=== PATIENT | male | born 1945 | race Caucasian/White ===

== ENCOUNTER 2022-03-29 11:55 | Emergency (ER) | payer MEDICARE, OTHER ==
[2022-03-29 13:38] LABS: BASOPHIL 0.2 % (0-2); EOSINOPHIL 0 % (0-7); HCT 31.9 % (42.0-52.0); HGB 10.1 g/dl (13.2-18.0); LYMPHOCYTE 6.5 % (15-48); MCHC 31.7 g/dL (32.0-36.0); MONOCYTE 14.3 % (0-12); MPV 8.7 fL (6.0-9.5); NEUTROPHIL 78.1 % (41-80); NRBC 0; PLT 255 K/uL (150-400); RBC 3.89 M/uL (4.70-6.00); RDW 16.2 % (11.5-14.0); WBC 12.6 K/uL (4.0-10.5)
[2022-03-29 13:49] LABS: INR 1.39 (0.9-1.2); PROTHROMBIN TIME 16.6 SECONDS (11.9-13.9); PTT 35.5 SECONDS (24.9-34.6)
[2022-03-29 13:56] LABS: ALBUMIN 2.5 g/dL (3.4-5.0); BILIRUBIN - TOTAL 0.8 mg/dL (0.2-1.0); BUN/CREAT RATIO (CALC) 17.2 RATIO; CREATININE 0.93 mg/dL (0.67-1.17); GLOBULIN (CALCULATION) 4.6 g/dL; POTASSIUM 4.2 mmol/L (3.5-5.1); TOTAL PROTEIN 7.1 g/dL (6.4-8.2)
[2022-03-29 13:58] LABS: LACTIC ACID 2.4 mmol/L (0.4-1.9)
[2022-03-29 15:44] LABS: BILIRUBIN NEGATIVE (NEGATIVE); BLOOD 1+ Ery/uL (NEGATIVE); CLARITY CLEAR (CLEAR); COLOR YELLOW (YELLOW); GLUCOSE (U) NORMAL (NORMAL); LEUKOCYTES NEGATIVE Leu/uL (NEGATIVE); NITRITE NEGATIVE (NEGATIVE); PROTEIN TRACE (LOW) mg/dL (NEGATIVE); SPECIFIC GRAVITY 1.015 (1.001-1.030)
[2022-03-29 15:53] LABS: BACTERIA 4+
== END 2022-03-29 19:34 | disposition other institution (70) ==
LOC: FER 11:55
PROVIDERS: Emergency Medicine
DX: R53.1 Weakness (principal); I21.4 Non-ST elevation (NSTEMI) myocardial infarction; C85.90 Non-Hodgkin lymphoma, unspecified, unspecified site; I69.928 Other speech and language deficits following unspecified cerebrovascular disease; I25.2 Old myocardial infarction; E11.9 Type 2 diabetes mellitus without complications; I10 Essential (primary) hypertension; Z95.5 Presence of coronary angioplasty implant and graft; Z95.1 Presence of aortocoronary bypass graft; Z87.891 Personal history of nicotine dependence
CPT/HCPCS: 36415; 70450; 71045; 71250; 72170; 80053; 81001; 83605; 84484; 85025; 85610; 85730; 93005; J7040

== ENCOUNTER 2022-04-19 12:40 | Inpatient (IN) | payer MEDICARE, OTHER ==
[~2022-04-19] VITALS: Ht 182.9 cm; Wt 78.0 kg
[2022-04-19 14:02] LABS: BILIRUBIN 1+ mg/dL (NEGATIVE); BLOOD 3+ Ery/uL (NEGATIVE); CLARITY CLEAR (CLEAR); COLOR YELLOW (YELLOW); GLUCOSE (U) NORMAL (NORMAL); LEUKOCYTES TRACE Leu/uL (NEGATIVE); NITRITE NEGATIVE (NEGATIVE); PROTEIN 1+ mg/dL (NEGATIVE); pH 5.5 (5.0-9.0)
[2022-04-19 14:03] LABS: BASOPHIL 0 % (0-2); HCT 28.4 % (42.0-52.0); LYMPHOCYTE 54.5 % (15-48); MCH 24.9 pg (25.0-31.0); MCHC 31.7 g/dL (32.0-36.0); MONOCYTE 21.2 % (0-12); NEUTROPHIL 21.3 % (41-80); NRBC 0; PLT 180 K/uL (150-400); RBC 3.61 M/uL (4.70-6.00); RDW 16.8 % (11.5-14.0)
[2022-04-19 14:07] LABS: MCV 78.7 fL (78.0-100.0); WBC 0.3 K/uL (4.0-10.5)
[2022-04-19 14:11] LABS: BILIRUBIN - TOTAL 1.1 mg/dL (0.2-1.0); BUN/CREAT RATIO (CALC) 37.8 RATIO; CREATININE 0.74 mg/dL (0.67-1.17); GLOBULIN (CALCULATION) 3.5 g/dL; POTASSIUM 4.2 mmol/L (3.5-5.1); TOTAL PROTEIN 5.5 g/dL (6.4-8.2)
[2022-04-19 14:23] LABS: LACTIC ACID 2.6 mmol/L (0.4-1.9)
[2022-04-19 14:28] LABS: BACTERIA 1+; URINARY WBC RARE
[2022-04-19] MEDS ORDERED: NORVASC5 MG PO (19:30)
[2022-04-19] MEDS ORDERED: ASPIRIN81 MG PO (19:30)
[2022-04-19] MEDS ORDERED: TENORMIN50 MG PO (19:31)
[2022-04-19] MEDS ORDERED: BRILINTA90 MG PO (19:31)
[2022-04-19] MEDS ORDERED: CLONIDINE HCL0.1 MG PO (19:32)
[2022-04-19] MEDS ORDERED: KLOR-CON 1010 MEQ PO (19:33)
[2022-04-19] MEDS ORDERED: PRINIVIL20 MG PO (19:34)
[2022-04-19] MEDS ORDERED: FLOMAX0.4 MG PO (19:35)
[2022-04-19] MEDS ORDERED: PEPCID AC20 MG PO (19:35)
[2022-04-19] MEDS ORDERED: ELAVIL25 MG PO (19:36)
[2022-04-19] MEDS ORDERED: LANTUS SOL100 UNIT/1 SC (19:37)
[2022-04-19] MEDS ORDERED: NOVOLOG FL100 UNIT/1 SC (19:39)
[2022-04-19] MEDS ORDERED: CULTURELLE1 EACH PO (19:39)
[2022-04-19] MEDS ORDERED: ALLOPURINOL 30300 MG PO (19:41)
[2022-04-19] MEDS ORDERED: BACTRIM DS TAB1 EACH PO (19:41)
[2022-04-19] MEDS ORDERED: MEGACE ORA6 TSP/1 OZ PO (19:43)
[2022-04-20 04:35] LABS: BASOPHIL 0 % (0-2); EOSINOPHIL 0 % (0-7); HCT 24.1 % (42.0-52.0); HGB 7.7 g/dl (13.2-18.0); LYMPHOCYTE 72.2 % (15-48); MCH 25.1 pg (25.0-31.0); MCV 78.5 fL (78.0-100.0); MONOCYTE 22.2 % (0-12); MPV 9.7 fL (6.0-9.5); NRBC 0; PLT 114 K/uL (150-400); RBC 3.07 M/uL (4.70-6.00)
[2022-04-20 04:45] LABS: NEUTROPHIL 5.6 % (41-80); WBC 0.2 K/uL (4.0-10.5)
[2022-04-20 04:58] LABS: IRON % SATURATION 126.6 %SAT (20-50)
[2022-04-20 05:01] LABS: ALBUMIN 1.7 g/dL (3.4-5.0); BILIRUBIN - DIRECT 0.9 mg/dL (0.00-0.20); BILIRUBIN - TOTAL 1.3 mg/dL (0.2-1.0); BUN/CREAT RATIO (CALC) 32.8 RATIO; CREATININE 0.64 mg/dL (0.67-1.17); GLOBULIN (CALCULATION) 3.8 g/dL; POTASSIUM 3.2 mmol/L (3.5-5.1); TOTAL PROTEIN 5.5 g/dL (6.4-8.2)
[2022-04-20 18:07] LABS: BUN/CREAT RATIO (CALC) 33.9 RATIO; CREATININE 0.62 mg/dL (0.67-1.17); POTASSIUM 3.4 mmol/L (3.5-5.1)
[2022-04-20 18:17] LABS: LACTIC ACID 1.3 mmol/L (0.4-1.9)
[2022-04-20 18:39] LABS: HCT 24.6 % (42.0-52.0); HGB 7.5 g/dl (13.2-18.0); MCH 24.2 pg (25.0-31.0); MCHC 30.5 g/dL (32.0-36.0); MCV 79.4 fL (78.0-100.0); MPV 10.4 fL (6.0-9.5); RBC 3.1 M/uL (4.70-6.00); RDW 16.9 % (11.5-14.0)
[2022-04-20 18:42] LABS: WBC 0.1 K/uL (4.0-10.5)
[2022-04-21 05:52] LABS: BASOPHIL 0 % (0-2); EOSINOPHIL 0 % (0-7); HCT 22.1 % (42.0-52.0); LYMPHOCYTE 69.2 % (15-48); MCH 24.4 pg (25.0-31.0); MCHC 30.3 g/dL (32.0-36.0); MCV 80.4 fL (78.0-100.0); MONOCYTE 30.8 % (0-12); MPV 10.3 fL (6.0-9.5); NEUTROPHIL 0 % (41-80); NRBC 0; PLT 81 K/uL (150-400); RBC 2.75 M/uL (4.70-6.00)
[2022-04-21 05:58] LABS: HGB 6.7 g/dl (13.2-18.0); WBC 0.1 K/uL (4.0-10.5)
[2022-04-21 06:09] LABS: BUN/CREAT RATIO (CALC) 38.6 RATIO; CREATININE 0.57 mg/dL (0.67-1.17); POTASSIUM 3.1 mmol/L (3.5-5.1)
[2022-04-22 05:43] LABS: HCT 33.1 % (42.0-52.0); MCH 26.5 pg (25.0-31.0); MCHC 32.3 g/dL (32.0-36.0); MCV 81.9 fL (78.0-100.0); MPV 10.8 fL (6.0-9.5); RBC 4.04 M/uL (4.70-6.00); RDW 16.9 % (11.5-14.0)
[2022-04-22 05:45] LABS: HGB 10.7 g/dl (13.2-18.0); WBC 0.1 K/uL (4.0-10.5)
[2022-04-22 05:57] LABS: BUN/CREAT RATIO (CALC) 36.7 RATIO; CREATININE 0.49 mg/dL (0.67-1.17); PHOSPHORUS 2.2 mg/dL (2.6-4.7)
[2022-04-22 06:12] LABS: URIC ACID 2.4 mg/dL (3.5-7.2)
[2022-04-22 06:47] LABS: POTASSIUM 2.4 mmol/L (3.5-5.1)
[2022-04-22 15:52] LABS: BUN/CREAT RATIO (CALC) 40.8 RATIO; CREATININE 0.49 mg/dL (0.67-1.17); POTASSIUM 2.6 mmol/L (3.5-5.1)
--- NOTE | 2022-04-22 16:19 | NUR ---
NOTIFIED MD GONZALEZ THAT POTASSIUM IS 2.6 AFTER 4 POTASSIUM RUNS. ORDERS FOR MOVE IV POTASSIUM RUNS
[2022-04-23 00:19] LABS: BUN/CREAT RATIO (CALC) 36.8 RATIO; CREATININE 0.57 mg/dL (0.67-1.17); POTASSIUM 2.7 mmol/L (3.5-5.1)
[2022-04-23 09:56] LABS: BASOPHIL 0 % (0-2); EOSINOPHIL 0 % (0-7); HCT 33.9 % (42.0-52.0); LYMPHOCYTE 78.3 % (15-48); MCH 26.6 pg (25.0-31.0); MCHC 32.4 g/dL (32.0-36.0); MCV 82.1 fL (78.0-100.0); MONOCYTE 17.4 % (0-12); MPV 10.8 fL (6.0-9.5); NEUTROPHIL 4.3 % (41-80); NRBC 0; PLT 58 K/uL (150-400); RDW 16.6 % (11.5-14.0)
[2022-04-23 10:01] LABS: RBC 4.13 M/uL (4.70-6.00); WBC 0.2 K/uL (4.0-10.5)
[2022-04-23 10:20] LABS: BUN/CREAT RATIO (CALC) 35.5 RATIO; CREATININE 0.62 mg/dL (0.67-1.17); MAGNESIUM 2.2 mg/dL (1.8-2.4); POTASSIUM 2.9 mmol/L (3.5-5.1)
[2022-04-24 04:11] LABS: BASOPHIL 0 % (0-2); EOSINOPHIL 0 % (0-7); HCT 32.3 % (42.0-52.0); HGB 10.4 g/dl (13.2-18.0); LYMPHOCYTE 76.9 % (15-48); MCH 26.3 pg (25.0-31.0); MCHC 32.2 g/dL (32.0-36.0); MCV 81.6 fL (78.0-100.0); MONOCYTE 19.2 % (0-12); MPV 10.7 fL (6.0-9.5); NEUTROPHIL 3.9 % (41-80); NRBC 0; PLT 61 K/uL (150-400); RBC 3.96 M/uL (4.70-6.00); RDW 16.7 % (11.5-14.0)
[2022-04-24 04:19] LABS: WBC 0.3 K/uL (4.0-10.5)
[2022-04-24 04:25] LABS: ALBUMIN 1.2 g/dL (3.4-5.0); BUN/CREAT RATIO (CALC) 38.5 RATIO; CREATININE 0.65 mg/dL (0.67-1.17); GLOBULIN (CALCULATION) 3.4 g/dL; MAGNESIUM 2.1 mg/dL (1.8-2.4); POTASSIUM 3.4 mmol/L (3.5-5.1); TOTAL PROTEIN 4.6 g/dL (6.4-8.2)
--- NOTE | 2022-04-24 13:02 | NUR ---
FAMILY NOTE REQUESTING NO STAFF WORKING WITH COVID PATIENTS ENTER PATIENT ROOM ESCALATED TO BUSINESS MACHINE OPERATOR.
[2022-04-24 14:58] LABS: BILIRUBIN 2+ mg/dL (NEGATIVE); BLOOD NEGATIVE Ery/uL (NEGATIVE); CLARITY CLEAR (CLEAR); COLOR YELLOW (YELLOW); GLUCOSE (U) 2+ mg/dL (NORMAL); LEUKOCYTES NEGATIVE Leu/uL (NEGATIVE); NITRITE NEGATIVE (NEGATIVE); PROTEIN 1+ mg/dL (NEGATIVE)
--- NOTE | 2022-04-24 14:58 | NUR ---
1400- PT PULLED OUT NG TUBE 40 CM, TUBE WAS 70 AT NARE AND WHEN RN WAS NOTIFIED NG WAS 30 AT RIGHT NARE. MD ORDER TO ADVANCE, PT ATTEMPTED TO PULL NG OUT AGAIN AFTER ADVANCING. FINALLY RN CONVINCED PT TO KEEP NG TUBE IN WITH WIF AT BEDSIDE. KUB ORDEERED FOR PLACEMENT.
[2022-04-24 15:50] LABS: BACTERIA TRACE
--- NOTE | 2022-04-24 18:00 | NUR ---
1800- NEW DOBHOFF PLACED WITH MD VERBAL ORDER IF PREVIOUS NG ISNT FUNCTIONING.
--- NOTE | 2022-04-24 19:04 | NUR ---
CALL PLACED TO ARNEL NICOLE TO REVIEW KUB FOR DOBHOFF. BONNIE COX'D USE OF DOBHOFF.
[2022-04-25 06:23] LABS: BASOPHIL 0 % (0-2); EOSINOPHIL 0 % (0-7); HCT 33.6 % (42.0-52.0); HGB 10.9 g/dl (13.2-18.0); MCH 26.6 pg (25.0-31.0); MCHC 32.4 g/dL (32.0-36.0); MONOCYTE 19.6 % (0-12); NEUTROPHIL 17.4 % (41-80); NRBC 0; PLT 72 K/uL (150-400); RDW 16.9 % (11.5-14.0)
[2022-04-25 06:30] LABS: WBC 0.5 K/uL (4.0-10.5)
[2022-04-25 06:48] LABS: ALBUMIN 1.2 g/dL (3.4-5.0); BUN/CREAT RATIO (CALC) 49.3 RATIO; CREATININE 0.67 mg/dL (0.67-1.17); MAGNESIUM 2.1 mg/dL (1.8-2.4); PHOSPHORUS 1.2 mg/dL (2.6-4.7); POTASSIUM 3.6 mmol/L (3.5-5.1)
--- NOTE | 2022-04-26 04:15 | NUR ---
SPOKE WITH NISH IN PHARMACY & CONFIRMED NO VANC TROUGH IS DUE.
[2022-04-26 06:17] LABS: BASOPHIL 1.3 % (0-2); EOSINOPHIL 0 % (0-7); HCT 31.1 % (42.0-52.0); HGB 10.1 g/dl (13.2-18.0); LYMPHOCYTE 39.7 % (15-48); MCH 26.7 pg (25.0-31.0); MCHC 32.5 g/dL (32.0-36.0); MCV 82.3 fL (78.0-100.0); MONOCYTE 17.9 % (0-12); MPV 11.9 fL (6.0-9.5); NEUTROPHIL 41.1 % (41-80); NRBC 0; PLT 63 K/uL (150-400); RBC 3.78 M/uL (4.70-6.00); RDW 17.5 % (11.5-14.0)
[2022-04-26 06:18] LABS: WBC 0.8 K/uL (4.0-10.5)
[2022-04-26 06:35] LABS: ALBUMIN 1.1 g/dL (3.4-5.0); CREATININE 0.66 mg/dL (0.67-1.17); MAGNESIUM 1.9 mg/dL (1.8-2.4); POTASSIUM 3.6 mmol/L (3.5-5.1)
[2022-04-26 09:40] LABS: BILIRUBIN 1+ mg/dL (NEGATIVE); BLOOD 1+ Ery/uL (NEGATIVE); CLARITY CLEAR (CLEAR); COLOR YELLOW (YELLOW); GLUCOSE (U) 3+ mg/dL (NORMAL); LEUKOCYTES NEGATIVE Leu/uL (NEGATIVE); NITRITE NEGATIVE (NEGATIVE); PROTEIN TRACE (LOW) mg/dL (NEGATIVE); UROBILINOGEN 0.2 mg/dL (0.2-1.0); pH 5.5 (5.0-9.0)
[2022-04-26 09:49] LABS: BACTERIA TRACE; URINARY RBC RARE
[2022-04-26 17:20] LABS: BUN/CREAT RATIO (CALC) 43.8 RATIO; CREATININE 0.73 mg/dL (0.67-1.17); POTASSIUM 3.3 mmol/L (3.5-5.1)
[2022-04-27 07:19] LABS: BUN/CREAT RATIO (CALC) 38.3 RATIO; CREATININE 0.81 mg/dL (0.67-1.17); MAGNESIUM 2.1 mg/dL (1.8-2.4); PHOSPHORUS 2.6 mg/dL (2.6-4.7); POTASSIUM 4.3 mmol/L (3.5-5.1)
--- NOTE | 2022-04-27 08:40 | NUR ---
[id number] PATIENT BRADIED DOWN INTO THE 30'S THEN RETURNED TO 70'S. BLOOD PRESSURE 67/31. DR. PALOMARES NOTIFIED. DISCUSSION HELD WITH FAMILY AND DECISION MADE FOR NO FURTHER ACTION TO BE TAKEN. [employer]PER[employer] CALLED. [id number] GONZALEZ AND DR. PALOMARES SPOKE WITH FAMILY.
== END 2022-04-27 09:57 | disposition expired | DRG 871 ==
LOC: FER 12:40 → FTCU 16:00 → FICU 04-26 08:42
PROVIDERS: Emergency Medicine; Family Medicine; Nurse Practitioner Acute Care; ADMIT Allergy & Immunology Allergy
PROC: 3E03329 Introduction of Other Anti-infective into Peripheral Vein, Percutaneous Approach (ICD-10-PCS; 2022-04-19)
PROC: 30233M1 Transfusion of Nonautologous Plasma Cryoprecipitate into Peripheral Vein, Percutaneous Approach (ICD-10-PCS; 2022-04-21)
PROC: 30233M1 Transfusion of Nonautologous Plasma Cryoprecipitate into Peripheral Vein, Percutaneous Approach (ICD-10-PCS; 2022-04-21)
PROC: 05HY33Z Insertion of Infusion Device into Upper Vein, Percutaneous Approach (ICD-10-PCS; principal; 2022-04-26)
DX: A41.9 Sepsis, unspecified organism (principal); D61.810 Antineoplastic chemotherapy induced pancytopenia; G93.41 Metabolic encephalopathy; J96.01 Acute respiratory failure with hypoxia; C81.90 Hodgkin lymphoma, unspecified, unspecified site; D84.9 Immunodeficiency, unspecified; B37.0 Candidal stomatitis; I47.1 Supraventricular tachycardia; N17.9 Acute kidney failure, unspecified; E87.0 Hyperosmolality and hypernatremia; E46 Unspecified protein-calorie malnutrition; R65.20 Severe sepsis without septic shock; Z66 Do not resuscitate; Z20.822 Contact with and (suspected) exposure to COVID-19; Z51.5 Encounter for palliative care; I46.9 Cardiac arrest, cause unspecified; R00.1 Bradycardia, unspecified; I10 Essential (primary) hypertension; Z96.642 Presence of left artificial hip joint; R50.81 Fever presenting with conditions classified elsewhere; R13.10 Dysphagia, unspecified; E87.6 Hypokalemia; L89.312 Pressure ulcer of right buttock, stage 2; K12.31 Oral mucositis (ulcerative) due to antineoplastic therapy; F03.90 Unspecified dementia, unspecified severity, without behavioral disturbance, psychotic disturbance, mood disturbance, and anxiety; E83.42 Hypomagnesemia; E83.39 Other disorders of phosphorus metabolism; D70.1 Agranulocytosis secondary to cancer chemotherapy; T45.1X5A Adverse effect of antineoplastic and immunosuppressive drugs, initial encounter; E86.9 Volume depletion, unspecified; D50.9 Iron deficiency anemia, unspecified; K59.01 Slow transit constipation; E11.9 Type 2 diabetes mellitus without complications; I25.10 Atherosclerotic heart disease of native coronary artery without angina pectoris; Z88.7 Allergy status to serum and vaccine; Z79.82 Long term (current) use of aspirin; Z79.899 Other long term (current) drug therapy; Z95.1 Presence of aortocoronary bypass graft; Z82.49 Family history of ischemic heart disease and other diseases of the circulatory system; Z83.3 Family history of diabetes mellitus; Z80.1 Family history of malignant neoplasm of trachea, bronchus and lung; Z79.84 Long term (current) use of oral hypoglycemic drugs; Z28.311 Partially vaccinated for COVID-19; Z95.5 Presence of coronary angioplasty implant and graft; Z68.20 Body mass index [BMI] 20.0-20.9, adult
CPT/HCPCS: 36415; 36430; 36600; 70492; 71045; 71250; 71275; 74018; 80048; 80053; 80069; 80076; 80202; 81001; 82009; 82803; 82962; 83036; 83540; 83550; 83605; 83735; 83880; 84100; 84145; 84300; 84550; 85025; 85379; 86850; 86900; 86901; 86922; 87040; 87070; 87205; 92526; 93005; 94010; 94640; 94668; 94762; 97163; 97167; 97530; 97530-GP; 97535; C1751; G0378; J0637; J0692; J1160; J1447; J1642; J1650; J1815; J1885; J2060; J2270; J2997; J3370; J3475; J3480; J7030; J7040; J7042; J7050; J7060; J7070; J7120; P9016; Q9967; U0002